=== PATIENT | female | born 1970 | race Caucasian/White ===

== ENCOUNTER 2020-08-21 18:18 | Emergency (ER) | payer SELFPAY ==
[2020-08-21 18:19] VITALS: BP 150/89; PULSE 83; RESP 18; TEMP 36.3; O2SAT 97; BMI 28.1
--- NOTE | 2020-08-21 18:48 | XRR_ITS ---
PROCEDURE INFORMATION: Exam: XR Chest Exam date and time: 08/21/2020 7:02 PM Age: 49 years old Clinical indication: Radiating; Patient HX: C/O chest pain and heart racing earlier today. TECHNIQUE: Imaging protocol: XR of the chest. Views: 1 view. Total images: 1 COMPARISON: No relevant prior studies available. FINDINGS: Lungs: No visible active interstitial or alveolar airspace disease. Pleural spaces: Unremarkable. No pleural effusion. No pneumothorax. Heart/Mediastinum: Unremarkable. No cardiomegaly. Bones/joints: Unremarkable. XR/XR chest 1V portable [id number] IMPRESSION: Nonacute.
--- NOTE | 2020-08-21 18:48 | ECG_ITS ---
[facility] Test Date: 2020-08-21 Pat Name: Corrina Mckeon Department: Room: Gender: Female Senior Software Developer: : 1970 Requested By: Judith Villela Order Number: [id number] Aneudy MD: Orquidea Rose M.D. Measurements Intervals [place] Rate: 83 P: 61 DE: 175 QRS: 17 QRSD: 101 T: 26 QT: 373 QTc: 441 Interpretive Statements SINUS RHYTHM POSSIBLE LEFT ATRIAL ENLARGEMENT [-0.1mV P WAVE IN V1/V2] LOW QRS VOLTAGE IN PRECORDIAL LEADS [QRS DEFLECTION < 1.0 mV IN CHEST LEADS] INCOMPLETE RIGHT BUNDLE BRANCH BLOCK [90+ ms QRS DURATION, TERMINAL R IN V1/V2, 40+ ms S IN I/aVL/V4/V5/V6] No previous ECG available for comparison Electronically Signed On 08-22-2020 14:10:09 CDT by Orquidea Rose M.D. [id number]
--- NOTE | 2020-08-21 23:18 | W.ED.CHESTPA ---
HPI - Chest Pain General: Chief Complaint: Chest Pain Stated Complaint: CHEST PAINS Time Seen by Provider: 08/21/20 22:46 Source: patient Mode of arrival: ambulatory Limitations: no limitations History of Present Illness: HPI narrative: Patient is a 49-year-old female who presents to ED today with complaints of chronic intermittent palpitations. Patient tells me she has had symptoms ever since COVID started . She states she was diagnosed with COVID back in October. Patient states she had 2 episodes today where she felt like her heart was fluttering and beating hard . She has no cardiac or pulmonary history. Course Vital Signs: Vital signs: Vital Signs Temperature 97.3 F L 08/21/20 18:19 Pulse Rate 83 08/21/20 18:19 Respiratory Rate 18 08/21/20 18:19 Blood Pressure 150/89 08/21/20 18:19 Pulse Oximetry 97 08/21/20 18:19 MDM - Chest Pain Lab Data: Labs: Lab Results 08/21/20 08/21/20 Range/Units 23:06 23:06 WBC 6.4 (4.0-10.0) 10^3/ uL RBC 4.20 (4.1-5.3) 10^6/u L Hgb 12.9 (11.5-15.3) g/dL Hct 39.6 (37.0-47.0) % MCV 94.3 (81-99) fL MCH 30.7 (28.0-34.0) pg MCHC 32.6 (30.0-36.0) g/dL RDW 12.4 (12.1-15.1) % Plt Count 175 (130-400) 10^3/c mm MPV 11.7 H (7.4-10.4) fL Neut % (Auto) 48.3 % Lymph % (Auto) 40.7 % Nelson % (Auto) 9.1 % Eos % (Auto) 1.1 % Baso % (Auto) 0.6 % Neut # (Auto) 3.08 (1.8-7.7) 10^3/u L Lymph # (Auto) 2.6 (0.8-4.8) 10^3/u L Nelson # (Auto) 0.6 (0.2-0.9) 10^3/u L Eos # (Auto) 0.1 (0.0-0.8) 10^3/u L Baso # (Auto) 0.0 (0.0-0.1) 10^3/u L Nucleated RBC % (a uto) 0 % Nucleated RBCs # 0.0 /100WBC Sodium 141 (136-145) mmol/L Potassium 3.7 (3.5-5.1) mmol/L Chloride 106 (98-107) mmol/L Carbon Dioxide 27 (22-29) mmol/L Anion Gap 11.7 (5-19) BUN 9 (6-20) mg/dL Creatinine 0.6 (0.5-0.9) mg/dL GFR Calculation 107.2 (90-130) mL/min Glucose 113 (65-115) mg/dL Calculated Osmolal ity 291 (285-295) mOsm/k g Calcium 8.7 (8.5-10.5) mg/dL Total Bilirubin 0.5 (0.15-1.2) mg/dL AST 24 (0-32) U/L ALT 14 (0-33) U/L Alkaline Phosphata se 79 (35-105) IU/L Albumin 4.3 (3.5-5.2) g/dL Globulin 2.2 (1.3-4.6) g/dL Imaging Data^: CXR: Radiologist's impression: [address] [address]CYep ReportSigned Patient: Corrina Mckeon #: [id number]: 1970Acct#:[id number]/Sex: 49 / FADM Date: 08/21/20Loc: ERRoom/Bed:Attending Dr: Ordering Provider/Ordering MD: Judith Villela Date of Service: 08/21/20 Procedure(s): XR chest 1V portable [id number] Accession Number(s): [id number] Report Number: [id number] PROCEDURE INFORMATION: Exam: XR Chest Exam date and time: 08/21/2020 7:02 PM Age: 49 years old Clinical indication: Radiating; Patient HX: C/O chest pain and heart racing earlier today. TECHNIQUE: Imaging protocol: XR of the chest. Views: 1 view. Total images: 1 COMPARISON: No relevant prior studies available. FINDINGS: Lungs: No visible active interstitial or alveolar airspace disease. Pleural spaces: Unremarkable. No pleural effusion. No pneumothorax. Heart/Mediastinum: Unremarkable. No cardiomegaly. Bones/joints: Unremarkable. XR/XR chest 1V portable [id number] IMPRESSION: Nonacute. Dictated By:Hayden Pierre By:Hayden Pierre Date/Time:08/21/201937DD/ 35 Coding Level of Care Code ED Paperhanger Pipe for Chg Fwchristian
[2020-08-21 23:20] LABS: Basophils % 0.6 %; Eosinophils # 0.1 10^3/uL (0.0-0.8); Eosinophils % 1.1 %; Hematocrit 39.6 % (37.0-47.0); Hemoglobin 12.9 g/dL (11.5-15.3); Lymphocytes # 2.6 10^3/uL (0.8-4.8); Lymphocytes % 40.7 %; Mean Corpuscular HGB Conc 32.6 g/dL (30.0-36.0); Mean Corpuscular Hemoglobin 30.7 pg (28.0-34.0); Mean Corpuscular Volume 94.3 fL (81-99); Mean Platelet Volume 11.7 fL (7.4-10.4); Monocytes # 0.6 10^3/uL (0.2-0.9); Monocytes % 9.1 %; Neutrophils # 3.08 10^3/uL (1.8-7.7); Neutrophils % 48.3 %; Nucleated Red Blood Cells % 0 %; Platelet Count 175 10^3/cmm (130-400); Red Cell Distribution Width 12.4 % (12.1-15.1); White Blood Count 6.4 10^3/uL (4.0-10.0)
[2020-08-21 23:32] LABS: Alanine Aminotransferase 14 U/L (0-33); Albumin Level 4.3 g/dL (3.5-5.2); Alkaline Phosphatase 79 IU/L (35-105); Anion Gap 11.7 (5-19); Aspartate Amino Transferase 24 U/L (0-32); Blood Urea Nitrogen 9 mg/dL (6-20); Calcium 8.7 mg/dL (8.5-10.5); Carbon Dioxide 27 mmol/L (22-29); Chloride 106 mmol/L (98-107); Creatinine Clr Calc Pharmacy 127.3927; Globulin 2.2 g/dL (1.3-4.6); Glomerular Filtration Rate 107.2 mL/min (90-130); Glucose 113 mg/dL (65-115); Osmolality Calculated 291 mOsm/kg (285-295); Potassium 3.7 mmol/L (3.5-5.1); Sodium 141 mmol/L (136-145); Total Bilirubin 0.5 mg/dL (0.15-1.2); Total Protein 6.5 g/dL (6.6-8.7)
--- NOTE | 2020-08-21 23:34 | ED_ITS ---
HPI - Arrhythmia/Palpitations General: Chief Complaint: Chest Pain Stated Complaint: CHEST PAINS Time Seen by Provider: 08/21/20 22:46 Source: patient Mode of arrival: ambulatory Limitations: no limitations History of Present Illness: HPI narrative: Patient is a 49-year-old female who presents to ED today with complaints of chronic intermittent palpitations. Patient tells me she has had symptoms ever since COVID started . She states she was diagnosed with COVID back in October. Patient states she had 2 episodes today where she felt like her heart was fluttering and beating hard . She has no cardiac or pulmonary history. No history of thyroid disease. She does complain of some mild left-sided chest pain however tells me she feels like this is related to her bra stating that when she removes her bra her pain subsides. Patient does not complain of chest pain with exertion. She has no shortness of breath or difficulty breathing. Patient admittedly has anxiety and panic attacks and wonders if her symptoms could be related to that. Associated symptoms: Reports anxiety; Deny nausea, pre-syncope, syncope or vomiting Review of Systems Const: Denies: fever(s), chills, body aches, fatigue or malaise Eyes: Denies: change in vision or blurry vision Card: Reports: palpitations; Denies: chest pain, irregular heart rhythm, edema, swelling of feet/ankles, lightheadedness, syncope, pre-syncope, dyspnea on exertion, orthopnea, leg pain with exertion or acrocyanosis Resp: Denies: dyspnea, productive cough, wheezing, stridor, pain on inspiration, hemoptysis or chest congestion GI: Denies: abdominal pain, nausea, vomiting, heartburn or diarrhea : Denies: dysuria Musc: Denies: neck pain, back pain or joint pain Skin/Breast: Denies: rash Neuro: Denies: headache(s), numbness in extremities, weakness in extremities, sensory changes or dizziness Psych: Reports: anxiety Physical Exam Const: COMMON NORMALS: no acute distress, average body habitus, patient orient ed x3, no limitations, healthy appearing, alert and well nourished Chest: COMMONS NORMALS: normal inspection of the chest and normal palpation of entire chest wall Resp: COMMON NORMALS: normal respiratory effort and clear to auscultation bilaterally AUSCULTATION: clear to auscultation bilaterally Cardio: COMMON NORMALS: regular rate and regular rhythm RATE: regular rate RHYTHM: regular rhythm Extremity: COMMON NORMALS: capillary refill normal, no clubbing, cyanosis or edema, no calf tenderness and no pedal edema Neuro: MAINOR COMA SCALE: document GCS findings Clinton coma scale eye opening: Spontaneous Clinton coma scale verbal response: Orientated Mainor coma scale motor response: Obey commands Clinton coma scale total score: 15 COMMON NORMALS: patient oriented x3 SENSORIUM/ORIENTATION: Yes alert Course Vital Signs: Vital signs: Vital Signs Temperature 97.3 F L 08/21/20 18:19 Pulse Rate 83 08/21/20 18:19 Respiratory Rate 18 08/21/20 18:19 Blood Pressure 150/89 08/21/20 18:19 Pulse Oximetry 97 08/21/20 18:19 MDM - Arrhythmia/Palpitations MDM Narrative: Medical decision making narrative: Patient's EKG is normal. She has had a normal rate and rhythm throughout her stay on the monitor. Radha nunez's labs are non-concerning. She has no complaints of dizziness/lightheadedness or syncopal episodes. She has no exertional symptoms. She does not complain of shortness of breath or difficulty breathing. Symptoms have been present for several months now. They do not seem to be worsening. Patient is stable for discharge. Recommend she follow-up with her primary care provider. Lab Data: Labs: Lab Results 08/21/20 08/21/20 08/21/20 Range/Units 23:06 23:06 23:06 WBC 6.4 (4.0-10.0) 10^3/ uL RBC 4.20 (4.1-5.3) 10^6/u L Hgb 12.9 (11.5-15.3) g/dL Hct 39.6 (37.0-47.0) % MCV 94.3 (81-99) fL MCH 30.7 (28.0-34.0) pg MCHC 32.6 (30.0-36.0) g/dL RDW 12.4 (12.1-15.1) % Plt Count 175 (130-400) 10^3/c mm MPV 11.7 H (7.4-10.4) fL Neut % (Auto) 48.3 % Lymph % (Auto) 40.7 % Angelina % (Auto) 9.1 % Eos % (Auto) 1.1 % Baso % (Auto) 0.6 % Neut # (Auto) 3.08 (1.8-7.7) 10^3/u L Lymph # (Auto) 2.6 (0.8-4.8) 10^3/u L Angelina # (Auto) 0.6 (0.2-0.9) 10^3/u L Eos # (Auto) 0.1 (0.0-0.8) 10^3/u L Baso # (Auto) 0.0 (0.0-0.1) 10^3/u L Nucleated RBC % (a uto) 0 % Nucleated RBCs # 0.0 /100WBC Sodium 141 (136-145) mmol/L Potassium 3.7 (3.5-5.1) mmol/L Chloride 106 (98-107) mmol/L Carbon Dioxide 27 (22-29) mmol/L Anion Gap 11.7 (5-19) BUN 9 (6-20) mg/dL Creatinine 0.6 (0.5-0.9) mg/dL GFR Calculation 107.2 (90-130) mL/min Glucose 113 (65-115) mg/dL Calculated Osmolal ity 291 (285-295) mOsm/k g Calcium 8.7 (8.5-10.5) mg/dL Total Bilirubin 0.5 (0.15-1.2) mg/dL AST 24 (0-32) U/L ALT 14 (0-33) U/L Alkaline Phosphata se 79 (35-105) IU/L Troponin T Baselin e 6 (0-10) ng/L Total Protein 6.5 L (6.6-8.7) g/dL Albumin 4.3 (3.5-5.2) g/dL Globulin 2.2 (1.3-4.6) g/dL TSH (0.27-4.20) uIU/ mL HCG, Qual (Negative) 08/21/20 08/21/20 Range/Units 23:06 23:06 WBC (4.0-10.0) 10^3/ uL RBC (4.1-5.3) 10^6/u L Hgb (11.5-15.3) g/dL Hct (37.0-47.0) % MCV (81-99) fL MCH (28.0-34.0) pg MCHC (30.0-36.0) g/dL RDW (12.1-15.1) % Plt Count (130-400) 10^3/c mm MPV (7.4-10.4) fL Neut % (Auto) % Lymph % (Auto) % Angelina % (Auto) % Eos % (Auto) % Baso % (Auto) % Neut # (Auto) (1.8-7.7) 10^3/u L Lymph # (Auto) (0.8-4.8) 10^3/u L Angelina # (Auto) (0.2-0.9) 10^3/u L Eos # (Auto) (0.0-0.8) 10^3/u L Baso # (Auto) (0.0-0.1) 10^3/u L Nucleated RBC % (a uto) % Nucleated RBCs # /100WBC Sodium (136-145) mmol/L Potassium (3.5-5.1) mmol/L Chloride (98-107) mmol/L Carbon Dioxide (22-29) mmol/L Anion Gap (5-19) BUN (6-20) mg/dL Creatinine (0.5-0.9) mg/dL GFR Calculation (90-130) mL/min Glucose (65-115) mg/dL Calculated Osmolal ity (285-295) mOsm/k g Calcium (8.5-10.5) mg/dL Total Bilirubin (0.15-1.2) mg/dL AST (0-32) U/L ALT (0-33) U/L Alkaline Phosphata se (35-105) IU/L Troponin T Baselin e (0-10) ng/L Total Protein (6.6-8.7) g/dL Albumin (3.5-5.2) g/dL Globulin (1.3-4.6) g/dL TSH 1.45 (0.27-4.20) uIU/ mL HCG, Qual Negative (Negative) Imaging Data^: CXR: Radiologist's impression: [address] [address] XRay Report Signed Patient: Corrina Mckeon Unit #: [id number] : 1970 4 Age/Sex: 49 / F ADM Date: 08/21/20 Loc: ER Room/Bed: Attending Dr: Ordering Provider/Ordering MD: Judith Villela Date of Service: 08/21/20 Procedure(s): XR chest 1V portable [id number] Accession Number(s): [id number] Report Number: [id number] PROCEDURE INFORMATION: Exam: XR Chest Exam date and time: 08/21/2020 7:02 PM Age: 49 years old Clinical indication: Radiating; Patient HX: C/O chest pain and heart racing earlier today. TECHNIQUE: Imaging protocol: XR of the chest. Views: 1 view. Total images: 1 COMPARISON: No relevant prior studies available. FINDINGS: Lungs: No visible active interstitial or alveolar airspace disease. Pleural spaces: Unremarkable. No pleural effusion. No pneumothorax. Heart/Mediastinum: Unremarkable. No cardiomegaly. Bones/joints: Unremarkable. XR/XR chest 1V portable [id number] IMPRESSION: Nonacute. Dictated By: Robles Pierre Signed By: Robles Pierre Signed Date/Time: 08/21/201937 DD/ 35 EKG Data^: EKG 1: EKG interpretation date: 08/22/20 EKG interpretation time: 18:24 Interpretation: Sinus rhythm Rate [address] elevation or depression changes noted Also reviewed by Dr. Hernandes Other EKG comments: Chest X-Ray 08/21/20 18:48 IMPRESSION: Nonacute. Discharge Plan Discharge Patient Disposition: Home Clinical Impression: Heart palpitations Condition: Stable Discharge Orders: Discharge ED (Routine); Ordered 08/22/20 Ordered By: Judith Villela Patient Instructions: Palpitations (ED) Activity Restrictions/Additional Instructions: As we discussed please follow-up with your primary care provider. You may return to the emergency department for chest pain, shortness of breath, difficulty breathing, dizziness/lightheadedness, passing out episodes, or any other concerns you may have. Coding Level of Care Code ED Trailer Rental Clerk for Niranjan Noriega
[2020-08-21 23:40] LABS: HCG, Serum Qual Negative (Negative)
[2020-08-21 23:46] LABS: Troponin(5th) Baseline 6 ng/L (0-10)
[2020-08-22] LABS: Thyroid Stimulating Hormone 1.45 uIU/mL (0.27-4.20)
[2020-08-22 01:05] VITALS: BP 112/71; PULSE 77; RESP 15; O2SAT 95
== END 2020-08-22 01:05 | disposition home or self-care (01) ==
PROVIDERS: Emergency Provider Physician Assistant
DX: R00.2 Palpitations (principal)
CPT/HCPCS: 36415; 71045; 80053; 84443; 84484; 84703; 85025; 93005; 99283